=== PATIENT | male | born 1965 | race Two or more races ===

== ENCOUNTER → 2017-12-29 | Outpatient (CLI) | payer OTHER | END | disposition home or self-care (01) | LOC: HPC 15:06 | DX: Z02.9 Encounter for administrative examinations, unspecified (principal) ==

== ENCOUNTER 2018-01-19 09:41 | Outpatient (CLI) | payer OTHER | END 2018-01-19 15:55 | disposition home or self-care (01) | LOC: HPC 09:41 | DX: R10.11 Right upper quadrant pain (principal); Z86.19 Personal history of other infectious and parasitic diseases; E11.9 Type 2 diabetes mellitus without complications; R59.1 Generalized enlarged lymph nodes; Z87.891 Personal history of nicotine dependence | CPT/HCPCS: Z7500 ==